=== PATIENT | male | born 1985 | race Caucasian/White ===

== ENCOUNTER 2016-12-15 17:43 | Emergency (ER) | payer BC, OTHER ==
[~2016-12-15] VITALS: Ht 182.9 cm; Wt 81.6 kg
[2016-12-15] MEDS ORDERED: fentaNYL INJECTION 100 MCG/2 ML AMP ONE (19:16)
[2016-12-15] MEDS ORDERED: fentaNYL INJECTION 100 MCG/2 ML AMP IVP STA (19:17)
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
[2016-12-15] MEDS ORDERED: ONDANSETRON 4 MG/2 ML (SDV) Z0FRAN IM ONE (19:30)
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
[2016-12-15] MEDS ORDERED: fentaNYL INJECTION 100 MCG/2 ML AMP IVP ONE (21:00)
[2016-12-15] MEDS ORDERED: HYDR-3820 PO (21:35)
[2016-12-15] MEDS ORDERED: ONDA4TAB8 PO (21:35)
[2016-12-15] MEDS ORDERED: HYDROcodone/APAP 10 MG/325 MG (LORTAB) TAB PO ONE (21:45)
[2016-12-15 21:53] VITALS: BP 135/84
[2016-12-15] MEDS ORDERED: RX-HYDROCODONE/APAP 5/325 MG #4 TAB PK PO ONE (21:53)
[2016-12-15] MEDS ORDERED: RX-HYDROCODONE/APAP 5/325 MG #4 TAB PK PO PRN (22:00)
== END 2016-12-15 21:55 | disposition home or self-care (01) ==
LOC: EDUNIT# 17:43 → ER 17:47
DX: S42.022A Displaced fracture of shaft of left clavicle, initial encounter for closed fracture (principal); S22.32XA Fracture of one rib, left side, initial encounter for closed fracture; V86.09XA Driver of other special all-terrain or other off-road motor vehicle injured in traffic accident, initial encounter
CPT/HCPCS: 71111; 73000; 96372; 96374; 96376